=== PATIENT | female | born 1950 | race Caucasian/White ===

== ENCOUNTER → 2016-10-15 | Outpatient (CLI) | payer MEDICARE, OTHER ==
[~2016-10-15] MED LIST: AMBIEN DPS10 MG PO; ASPIR-LOW81 MG PO; CARAFATE DPS1 GM PO; COZAAR DPS50 MG PO; DELTASONE DPS1 MG PO; DIFLUCAN DPS100 MG PO; DUONEB DPS3 ML IH; ELAVIL-DPS50 MG PO; GABAPENTIN600 MG PO; HYDROCODONE 5MG/5 MG PO; LEVAQUIN DPS500 MG PO; METOPROLOL SUCC25 MG PO; MUCINEX600 MG PO; NORCO 5-325 TA1 EACH PO; PROTONIX40 MG PO; TOPROL XL100 MG PO; TRIAMCINOLONE A15 GM TP; TYLENOL DPS325 MG PO; XANAX DPS0.5 MG PO; XARELTO20 MG PO
== END | disposition home or self-care (01) ==
LOC: PTH.S 06-26 12:45 → RAD.S 06-26 12:45 → PTH.S 06-26 13:00 → RAD.S 10-08 14:30 → RESC 12:55
DX: D86.0 Sarcoidosis of lung (principal); J18.9 Pneumonia, unspecified organism; J43.9 Emphysema, unspecified

== ENCOUNTER 2016-11-20 08:56 | Day surgery (SDC) | payer MEDICARE ==
[~2016-11-20] VITALS: Ht 172.7 cm
--- NOTE | 2016-11-22 08:12 | OR ---
ADMIT: 11/20/2016 RM/LOC: [facility] MR#: [id number] [id number] ILDA MILLER [address] [place] [address] Operative/Delivery Room Report SEX: F AGE: 66 : 1950 SURGERY DATE: 11/20/2016 SURGEON: Niranjan Richards MD MOTH EXTERMINATOR: None. PREPROCEDURE DIAGNOSES: 1. Lumbar disk degeneration. 2. Lumbosacral neuritis. POSTPROCEDURE DIAGNOSES: 1. Lumbar disk degeneration. 2. Lumbosacral neuritis. PROCEDURE PERFORMED: L 5-S1 interlaminar epidural steroid injection. INDICATIONS FOR PROCEDURE: The patient is a pleasant female with history of chronic low back pain with radicular symptoms. Comes here for planned lumbar epidural steroid injection. ANESTHESIA: Local without sedation. ESTIMATED BLOOD LOSS: Zero. COMPLICATIONS: None immediately evident. DESCRIPTION OF PROCEDURE: After the patient was seen in the preoperative area, vitals signs were taken. Prior to the procedure, the risks, benefits, and alternative therapies were discussed at length. Patient consent was obtained and updated. The patient was taken to the fluoroscopy suite and placed on the fluoroscopy table in the prone position. Pressure points were padded to comfort, monitors applied, and a timeout performed. Fluoroscopy was brought in. The patient was sterilely prepped and draped in the usual manner with ChloraPrep solution, and 1% lidocaine was used to anesthetize the appropriate needle entry site. Utilizing a midline approach, ADMIT: 11/20/2016 RM/LOC: [facility] MR#: [id number] [address] ILDA MILLER [address] [place] [address] Operative/Delivery Room Report SEX: F AGE: 66 : 1950 continuous loss of resistance technique with preservative-free normal saline and intermittent fluoroscopic guidance, the posterior epidural space was easily entered. Once the epidural space had been entered through L 5-S1 the patient was injected with 2 mL of Isovue-300 and outlining of the posterior epidural space was observed with no evidence of vascular uptake and intrathecal migration. Next, a solution consisting of 10 mL of preservative- free normal saline and 80 mg of Depo-Medrol was injected. The needle was withdrawn. The patient was escorted back to the preoperative area and observed for a period of time. PLAN: Discharge instructions were given, followup scheduled. 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 Niranjan Richards MD/ karin JOB #: [id number] CC: Niranjan Richards, Attending Physician Tabby Leavitt, Family Physician
== END 2016-11-20 10:25 | disposition home or self-care (01) ==
LOC: SSS 08:56
PROC: B01BYZZ Fluoroscopy of Spinal Cord using Other Contrast (ICD-10-PCS; principal; 2016-11-20)
PROC: 3E0S3BZ Introduction of Anesthetic Agent into Epidural Space, Percutaneous Approach (ICD-10-PCS; principal; 2016-11-20)
PROC: 3E0S33Z Introduction of Anti-inflammatory into Epidural Space, Percutaneous Approach (ICD-10-PCS; principal; 2016-11-20)
DX: G89.29 Other chronic pain (principal); M51.17 Intervertebral disc disorders with radiculopathy, lumbosacral region; Z79.899 Other long term (current) drug therapy